=== PATIENT | female | born 1930 | race Caucasian/White ===

== ENCOUNTER 2016-05-26 16:07 | Inpatient (IN) | payer MEDICARE, MEDICAID ==
[2016-05-26] MEDS ORDERED: NS 1,000 ML IV ONE (16:29)
[2016-05-26 16:39] LABS: AUTOMATED BASOPHIL 0.5 % (0-2); AUTOMATED EOSINOPHIL 2.2 % (0-5); AUTOMATED LYMPH 38.9 % (17-44); AUTOMATED MONOCYTE 8.2 % (3-10); AUTOMATED NEUTROPHIL 50.2 % (45-76); MPV 7.4 fL (7.4-10.4)
--- NOTE | 2016-05-26 16:41 | EDPRACDOC ---
- General Information Chief Complaint: Abdominal Pain Stated Complaint: LT SIDED ABD PAIN Time Seen by Provider: 05/26/16 16:28 Information Source: Patient Mode Of Arrival: Car Home Medications: Home Medications Amlodipine Bes/Olmesartan Med [Azeb Tablet (5mg/40 mg)] 0.5 tab PO QAM 07/22/13 Aspirin (Enteric Coated) [Halfprin] 81 mg PO DAILY 07/22/13 Atorvastatin [Lipitor 20 mg Tablet] 20 mg PO HS 07/22/13 Minocycline HCl [Dynacin] 100 mg PO DAILY 05/26/16 Allergies/Adverse Reactions: Allergies Allergy/AdvReac Type Severity Reaction Status Date / Time No Known Allergies Allergy Verified 05/26/16 16:18 - History of Present Illness Onset: 4 DAYS HPI: PATIENT PRESENTS WITH RLQ ABDOMINAL PAIN FOR 1 WEEK. TAKING CEFTIN AND FLAGYL FOR 5 DAYS WITHOUT RELIEF. NO FEVER. NAUSEA. DECREASED EATING Pain Location: Reports: LLQ Pain Context: Reports: Spontaneous Pain Severity: Moderate Pain Quality: Reports: Aching Pain Radiation: Reports: No Radiation Modifying Factors: improves with: Nothing Female Associated Signs & Symptoms: Reports: Nausea Oral Intake: Normal Urinary Output: Normal ED Past Medical History - History Reviewed Yes Nurses notes reviewed and agree except as marked - Patient Medical History Neurological History: Reports: Cerebrovascular Accident ([id number]) Cardiac History: Reports: Hypertension, Hypercholesterolemia Psychological History: Denies: Depression Systemic History: Reports: Cancer (skin) - Family Medical History Reports: Cardiac Disorders - Social Medical History Smoking Status: Never smoker ETOH: None Substance Abuse: None Lives With: Family Lives In: Home EDM Review of Systems - Review of Systems ROS Negative Except as Marked: Yes All systems reviewed and were negative except as marked Constitutional: No Symptoms Reported. negative: Fever, Chills, Weakness, Fatigue, Loss of Appetite Eyes: No Symptoms Reported. negative: Redness, Blurred Vision, Double Vision, Discharge, Pain, Light Sensitive, Photophobia Ears: No Symptoms Reported. negative: Pain, Hearing Loss, Drainage, Ear Pulling Throat: No Symptoms Reported. negative: Pain, Swelling Nose: No Symptoms Reported. negative: Congestion, Bleeding, Discharge, Injection, Swelling, Deformity, Ecchymosis, Tender, Abrasion, Laceration Mouth: No Symptoms Reported. negative: Pain, Drooling Respiratory: No Symptoms Reported. negative: Cough, Brassy Cough, Barky Cough, Shortness of Breath, Wheezing, Hemoptysis Cardiovascular: No Symptoms Reported. negative: Chest Pain, Palpitations, Syncope, Edema, Orthopnea, PND, Skin Mottling, Cyanosis Gastrointestinal: Nausea, Pain (LLQ). negative: Constipation, Diarrhea, Formula Intolerance, Melena, Vomiting Genitourinary: No Symptoms Reported. negative: Dysuria, Hematuria, Frequency, Discharge, Bleeding, Testicular Pain, Neurological: No Symptoms Reported. negative: Headache, Dizziness, Seizure, Numbness, Weakness, Speech Difficulty, Gait Difficulty Musculoskeletal: No Symptoms Reported. negative: Neck, Chestwall, Ribs, Back, Shoulder, Arm, Elbow, Forearm, Wrist, Hand, Pelvis, Hip, Femur, Knee, Leg, Ankle , Foot Integumentary: No Symptoms Reported. negative: Itching, Rash, Bruising, Wound Allergic/Immunologic: No Symptoms Reported. negative: Hives, Itching Hematologic: No Symptoms Reported. negative: Lymphadenopathy, Easy Bruising, Easy Bleeding Endocrine: No Symptoms Reported. negative: Weight Gain, Weight Loss Psychiatric: No Symptoms Reported. negative: Anxiety, Depression, Hallucinations, Insomnia, Suicidal - Physical Exam Constitutional: Alert (Awake) Oriented to: Time, Person, Place Last recorded Vital Signs: Last Vital Signs Temp 97.6 F 05/26/16 16:14 Pulse 80 05/26/16 17:33 Resp 18 05/26/16 17:33 BP 148/67 05/26/16 17:33 Pulse Ox 99 05/26/16 17:33 Oxygen Pulse Oxygen Saturation 99 O2 Device Room Air Oxygen Flow Rate Fraction of Inspired Oxygen ( FIO2) - HEENT Head: Normal ( normocephalic) Eye Exam: Normal (PERRL, EOMI, Sclera white) Oropharynx: Normal (Pharynx:Moist without exudate,Gums-no swelling) Tympanic Membrane: Normal ENT EAC: Normal TMJ: Normal Nose: No Symptoms Reported (septum midline) Neck: Normal (FROM, trachea at midline) - Respiratory/Cardiovascular Respiratory: Normal - CTA (BBS clear to auscultation without adventitious sounds ) Cardiovascular: Normal (RRR without murmur, gallop or rub) - GI Auscultation: Normal (NABS) Palpation: Normal (Soft,No rebound or guarding, non distended) Tenderness: Moderate, LLQ Verduzco's Sign: Negative - Musculoskeletal Back: Normal (Non-Tender) Extremities: Normal (Normal tone, Pulses 2+ No cyanosis or edema, FROM) - Integumentary Skin: Normal, Warm, Dry Lymphatics: Normal (no adenopathy) - Neurologic Memory Impaired: Normal Motor Function: Normal (Normal tone, Pulses 2+ No cyanosis or edema, FROM) Cranial Nerve: Normal (CN II-X11 intact sensation, strength 5/5) Cerebellar: Normal Mood Description: Normal Perception: Normal - Results 05/26/16 16:30 05/26/16 16:30 WBC 7.1 xk/uL (3.8-10.8) 05/26/16 16:30 RBC 4.21 xM/uL (4.20-5.40) 05/26/16 16:30 Hgb 12.2 g/dL (12.0-16.0) 05/26/16 16:30 Hct 36.8 % (36-47) 05/26/16 16:30 MCV 87 fL (81-99) 05/26/16 16:30 MCH 29.0 pg (27-32) 05/26/16 16:30 MCHC 33.2 g/dl (33-36) 05/26/16 16:30 RDW 14.6 % (11.5-14.5) H 05/26/16 16:30 Plt Count 206 xk/uL (130-400) 05/26/16 16:30 MPV 7.4 fL (7.4-10.4) 05/26/16 16:30 Neut % (Auto) 50.2 % (45-76) 05/26/16 16:30 Lymph % (Auto) 38.9 % (17-44) 05/26/16 16:30 [place] % (Auto) 8.2 % (3-10) 05/26/16 16:30 Eos % (Auto) 2.2 % (0-5) 05/26/16 16:30 Baso % (Auto) 0.5 % (0-2) 05/26/16 16:30 Absolute Neuts (auto) 3.55 xk/uL (1.7-8.2) 05/26/16 16:30 Absolute Lymphs (auto) 2.70 xk/uL (0.65-4.75) 05/26/16 16:30 Sodium 139 mEq/L (137-146) 05/26/16 16:30 Potassium 3.9 mEq/L (3.5-5.1) 05/26/16 16:30 Chloride 101 mEq/L (98-107) 05/26/16 16:30 Carbon Dioxide 28 mMOL/L (22-33) 05/26/16 16:30 Anion Gap 14 mEq/L (8-16) 05/26/16 16:30 BUN 23 MG/DL (7-17) H 05/26/16 16:30 Creatinine 1.10 MG/DL (0.52-1.04) H 05/26/16 16:30 Estimated GFR (MDRD) 47 mL/min (>=60) L 05/26/16 16:30 Glucose 110 MG/DL (70-99) H 05/26/16 16:30 Calculated Osmolality 273 MOs/Kg (270-290) 05/26/16 16:30 Calcium 9.6 MG/DL (8.4-10.2) 05/26/16 16:30 Total Bilirubin 0.5 MG/DL (0.2-1.3) 05/26/16 16:30 AST 25 IU/L (14-36) 05/26/16 16:30 ALT 26 IU/L (9-52) 05/26/16 16:30 Alkaline Phosphatase 81 IU/L (55-165) 05/26/16 16:30 Total Protein 8.0 G/DL (6.3-8.2) 05/26/16 16:30 Albumin 4.1 G/DL (3.5-5.0) 05/26/16 16:30 Lipase 52 U/L (23-300) 05/26/16 16:30 Urine Color Yellow 05/26/16 16:23 Urine Clarity Clear 05/26/16 16:23 Urine pH 5.0 (5.0-8.0) 05/26/16 16:23 Ur Specific [place] 1.005 (1.003-1.035) 05/26/16 16:23 Urine Protein Neg (NEG/TRACE) 05/26/16 16:23 Urine Glucose (UA) Neg (NEGATIVE) 05/26/16 16:23 Urine Ketones Neg (NEGATIVE) 05/26/16 16:23 Urine Occult Blood Neg (NEG/TRACE) 05/26/16 16:23 Urine Nitrite Neg (NEGATIVE) 05/26/16 16:23 Urine Bilirubin Neg (NEGATIVE) 05/26/16 16:23 Urine Urobilinogen <2.0 MG/DL (0-1) 05/26/16 16:23 Ur Leukocyte Esterase Neg (NEGATIVE) 05/26/16 16:23 Urine RBC 0-2 (0-5) 05/26/16 16:23 Urine WBC 0-2 (0-5) 05/26/16 16:23 Ur Epithelial Cells 1+ 05/26/16 16:23 Urine Bacteria Few (NEG/FEW) 05/26/16 16:23 Urine Mucus Occ (NEG/OCC) 05/26/16 16:23 Lab Results 05/26/16 05/26/16 05/26/16 16:30 16:30 16:23 WBC 7.1 RBC 4.21 Hgb 12.2 Hct 36.8 MCV 87 MCH 29.0 MCHC 33.2 RDW 14.6 H Plt Count 206 MPV 7.4 Neut % (Auto) 50.2 Lymph % (Auto) 38.9 [place] % (Auto) 8.2 Eos % (Auto) 2.2 Baso % (Auto) 0.5 Absolute Neuts (auto) 3.55 Absolute Lymphs (auto) 2.70 Sodium 139 Potassium 3.9 Chloride 101 Carbon Dioxide 28 Anion Gap 14 BUN 23 H Creatinine 1.10 H Estimated GFR (MDRD) 47 L Glucose 110 H Calculated Osmolality 273 Calcium 9.6 Total Bilirubin 0.5 AST 25 ALT 26 Alkaline Phosphatase 81 Total Protein 8.0 Albumin 4.1 Lipase 52 Urine Color Yellow Urine Clarity Clear Urine pH 5.0 Ur Specific [place] 1.005 Urine Protein Neg Urine Glucose (UA) Neg Urine Ketones Neg Urine Occult Blood Neg Urine Nitrite Neg Urine Bilirubin Neg Urine Urobilinogen <2.0 Ur Leukocyte Esterase Neg Urine RBC 0-2 Urine WBC 0-2 Ur Epithelial Cells 1+ Urine Bacteria Few Urine Mucus Occ - Departure Disposition: Admit IP To This Hospital Condition: Fair Final Diagnosis: Failure of outpatient treatment Diverticulitis Qualifiers: Diverticulitis site: large intestine Diverticulitis bleeding: without bleeding Diverticulitis complication: without perforation or abscess Qualified Code(s): K57.32 - Diverticulitis of large intestine without perforation or abscess without bleeding Instructions: Acute Abdominal Pain (ED) Education/Counseling Given To: Patient Education/Counseling Given Regarding: Diagnosis, Treatment, Prognosis Referrals: Ricardo Wooten MD [Primary Care Provider] - One Week Prescriptions: No Action Aspirin (Enteric Coated) [Halfprin] 81 mg PO DAILY Atorvastatin [Lipitor 20 mg Tablet] 20 mg PO HS Amlodipine Bes/Olmesartan Med [Azeb Tablet (5mg/40 mg)] 0.5 tab PO QAM Minocycline HCl [Dynacin] 100 mg PO DAILY Decision to Admit Time: 18:22 Decision to admit date: 05/26/16 Decision to admit: from ED - Physician Consulted Hospitalist Time Called: 18:22 Provider Called: Daniele Covington Time Executive [employer] Returned Call: 18:22
[2016-05-26 16:48] LABS: BLOOD UREA NITROGEN 23 MG/DL (7-17); CALCIUM 9.6 MG/DL (8.4-10.2); CALCULATED OSMOLALITY 273 MOs/Kg (270-290); CHLORIDE 101 mEq/L (98-107); GLUCOSE 110 MG/DL (70-99); SODIUM LEVEL 139 mEq/L (137-146)
[2016-05-26 16:57] LABS: LEUKOCYTES/URINE NEG (NEGATIVE); NITRITE/URINE NEG (NEGATIVE); RBC/URINE 0-2 (0-5); URINE OCCULT BLOOD NEG (NEG/TRACE); WBC/URINE 0-2 (0-5)
[2016-05-26] MEDS ORDERED: Pharmacy Review for Metformin - IV Contrast Given SCH (17:00)
--- NOTE | 2016-05-26 18:17 | DIRPT ---
CLINICAL DATA: 86-year-old presenting with 4 day history of left upper and lower quadrant abdominal pain. Patient is currently undergoing antibiotic therapy without improvement. Surgical history includes cholecystectomy and right colon resection. Personal history of melanoma. EXAM: CT ABDOMEN AND PELVIS WITH CONTRAST TECHNIQUE: Multidetector CT imaging of the abdomen and pelvis was performed using the standard protocol following bolus administration of intravenous contrast. CONTRAST: 80 ml Isovue 370 IV. Oral contrast was not administered at the request of the ordering physician. COMPARISON: None. FINDINGS: Lower chest: Heart mildly enlarged. Scarring and mild bronchiectasis involving the visualized lower lobes. Hepatobiliary: Mild diffuse hepatic steatosis without focal hepatic parenchymal abnormality. Surgically absent gallbladder. No unexpected biliary ductal dilation. Pancreas: Normal in appearance without evidence of mass, ductal dilation, or inflammation. Spleen: Normal in size and appearance. Adrenals/Urinary Tract: Normal appearing adrenal glands. Approximate 1.9 x 1.5 x 1.8 cm mass arising from the upper pole of the right kidney with Hounsfield measurement in the 60s. Numerous cortical cysts elsewhere in both kidneys. No urinary tract calculi on either side. No hydronephrosis. Normal-appearing urinary bladder. Stomach/Bowel: Small hiatal hernia. Stomach otherwise normal in appearance. Normal-appearing small bowel. Ileocolic anastomosis involving the mid to distal ascending colon, widely patent. Extensive diffuse colonic diverticulosis. Edema/inflammation in the fat surrounding the proximal sigmoid colon associated with focal wall thickening. No extraluminal gas. No abnormal fluid collection. Appendix surgically absent. 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 Visceral arteries patent though atherosclerotic. No pathologic lymphadenopathy. Reproductive: Atrophic uterus consistent with age, retroverted. Normal appearing ovaries for age. Left ovarian varicocele. No adnexal masses. Other: None. Musculoskeletal: Osseous demineralization. Degenerative disc disease and spondylosis involving the lower thoracic spine, L1-2, L4-5 and L5-S1. Facet degenerative changes diffusely throughout the lumbar spine. Moderate to severe multifactorial spinal stenosis at L4-5. IMPRESSION: 1. Approximate 2 cm mass arising from the upper pole of the right kidney, possibly a solid mass (versus hemorrhagic cyst, as there are cortical cysts elsewhere in both kidneys). Non-emergent urinary tract ultrasound may be confirmatory. 2. Acute diverticulitis involving the proximal sigmoid colon. No evidence of perforation or abscess. 3. Extensive diffuse colonic diverticulosis. 4. Small hiatal hernia. 5. Diffuse hepatic steatosis without focal hepatic parenchymal abnormality. Electronically Signed By: Kirill Ramirez M.D. On: 05/26/2016 18:14
[2016-05-26] MEDS ORDERED: Levofloxacin 750 mg/150 ml D5W 750 MG/150 ML RTU IV ONE (18:21)
--- NOTE | 2016-05-26 18:51 | HISTPHYS ---
- Chief Complaint abdominal pain, diverticulitis - History of Present Illness PRIMARY CARE PROVIDER: Dr. Wooten HPI: The patient is an 86-year-old woman with history of diverticulitis in the past, who was recently diagnosed with acute diverticulitis, and presents to the emergency department because it is worsening despite treatment. The patient has been on Ceftin and Flagyl for her diverticulitis for about 5 days. She went to the urgent care today because it was worsening. The urgent care provider was concerned and found guarding on exam and sent the patient to the emergency department. Regarding abdominal pain: Onset: about a week ago. Duration: intermittent but progressively worsening. Location: left lower quadrant. Radiation: none. Character: severe at times, to 8 /10. Cramping and dull. Alleviated by: Nothing. Exacerbated by: Nothing. Associated Symptoms: Nausea. No diarrhea. No constipation or bloody stool. Treatments: Antibiotics: Ceftin and Flagyl. - Medical History Cardiac History: Reports: Hypertension, Hypercholesterolemia GI/ History: Reports: Diverticulosis (Hx high grade glandular dysplasia colonoscopy 1999 Dr. Cochran.) Systemic History: Reports: Cancer (Melanoma) Neurological History: Reports: Cerebrovascular Accident (TIA 2013) Psychological History: Denies: Depression OTHER HISTORY: ECHOCARDIOGRAM 08/10/2013: EF 60-65%. Left ventricular systolic function is normal. Diastolic filling pattern indicates impaired relaxation. [id number] aortic regurgitation. The aortic pressure half time by Doppler is 494ms. Mild mitral regurgitation. Mild tricuspid regurgitation. Right ventricular systolic pressure as measured by Doppler is 32mmHg. - Surgical History Reports: Appendectomy (removed 2008 during colon resection), Cholecystectomy, Other (R colon resection for dysplasia (tub adenoma) 09/2008 Dr. Post.) - Medictions/Allergies Allergies No Known Allergies Allergy (Verified 05/26/16 16:18) Current Medication List: Reviewed Home Medications Amlodipine Bes/Olmesartan Med [Azeb Tablet (5mg/40 mg)] 0.5 tab PO QAM 07/22/13 Aspirin (Enteric Coated) [Halfprin] 81 mg PO DAILY 07/22/13 Atorvastatin [Lipitor 20 mg Tablet] 20 mg PO HS 07/22/13 Minocycline HCl [Dynacin] 100 mg PO DAILY 05/26/16 - Family History Reports: Hypertension (Aunt), Cancer (Mother: colon cancer), Cardiac Disorders ( Mother and Father: [place]) - Social History Smoking Status: Never smoker Social History: Denies: Alcohol Use, Substance Use Disorder - Review of Systems GENERAL: No Fever, chills, or diaphoresis. Positive for fatigue/malaise. HEENT: No nasal discharge or bleeding. No throat pain or swelling. RESPIRATORY: No cough, wheezing, or shortness of breath. CARDIOVASCULAR: No chest pain or palpitations. GI: Abdominal pain. No constipation or bloody stool. NEUROLOGICAL: No headache or focal weakness. INTEGUMENT: no rashes, itching, or lesions. LYMPHATIC SYSTEM: no lymph node swelling or pain. MUSCULOSKELETAL: no new pain or joint swelling. GENITOURINARY: No dysuria or hematuria. ENDOCRINE: No polyuria or polydipsia. HEME: No chronic anemia, bleeding, or easy bruising. - Physical Exam Vital Signs: Initial Vitals Temperature 97.6 F 05/26/16 16:14 Pulse Rate 65 05/26/16 16:14 Respiratory Rate 20 05/26/16 16:14 Blood Pressure 164/7 L 05/26/16 16:14 Pulse Oxygen Saturation 100 05/26/16 16:14 Vital Signs - 24 hr 05/26/16 05/26/16 05/26/16 16:14 16:31 17:03 Temperature 97.6 F Pulse Rate 65 66 68 Respiratory 20 18 18 Rate Blood Pressure 164/7 L 163/74 180/80 H Pulse Oxygen 100 99 Saturation 05/26/16 17:33 Temperature Pulse Rate 80 Respiratory 18 Rate Blood Pressure 148/67 Pulse Oxygen 99 Saturation Weight: 69.2 kg Height: 5 feet 4 inches BMI: 26.2 - Other Exam Other Exam Findings: GENERAL: Ill-appearing, well nourished, in acute distress. HEENT: Normocephalic, atraumatic; pupils equal and round. Nares patent, without discharge or bleeding. No oropharyngeal lesions or erythema. Mucous membranes are dry. NECK: is supple, no masses, trachea midline. RESPIRATORY: Clear to auscultation bilaterally. Chest wall movements are symmetric. No use of accessory muscles to breathe. No wheezing, rales, rhonchi. CARDIOVASCULAR: Normal S1, S2. Murmur 2/6 systolic. No rubs, or gallops. PMI non -displaced. Carotids: no carotid bruits. No bradycardia or tachycardia. DP pulses 1-2+ bilaterally. GI: soft, non-distended, normal active bowel sounds. No hepatosplenomegaly. Tenderness in periumbilical and left lower quadrant areas. INTEGUMENT: Clean, dry, and intact. No rashes. No lesions. MUSCULOSKELETAL: No cyanosis. No clubbing. Edema: none bilaterally. NEUROLOGICAL: Cranial nerves 2-12 grossly intact. Motor 4/5 throughout. Reflexes : 2+ bilaterally. Babinski: toes downgoing bilaterally. Intact Finger to nose. Sensory grossly intact to light touch. Intact rapid alternating movements bilaterally. No pronator drift. PSYCHIATRIC: Fully oriented. Normal and appropriate affect. LYMPHATIC: No cervical lymphadenopathy. No supraclavicular lymphadenopathy. - Lab Results Laboratory Results - last 24 hr 05/26/16 05/26/16 05/26/16 16:23 16:30 16:30 WBC 7.1 RBC 4.21 Hgb 12.2 Hct 36.8 MCV 87 MCH 29.0 MCHC 33.2 RDW 14.6 H Plt Count 206 MPV 7.4 Neut % (Auto) 50.2 Lymph % (Auto) 38.9 [place] % (Auto) 8.2 Eos % (Auto) 2.2 Baso % (Auto) 0.5 Absolute Neuts (auto) 3.55 Absolute Lymphs (auto) 2.70 Sodium 139 Potassium 3.9 Chloride 101 Carbon Dioxide 28 Anion Gap 14 BUN 23 H Creatinine 1.10 H Estimated GFR (MDRD) 47 L Glucose 110 H Calculated Osmolality 273 Calcium 9.6 Total Bilirubin 0.5 AST 25 ALT 26 Alkaline Phosphatase 81 Total Protein 8.0 Albumin 4.1 Lipase 52 Urine Color Yellow Urine Clarity Clear Urine pH 5.0 Ur Specific [place] 1.005 Urine Protein Neg Urine Glucose (UA) Neg Urine Ketones Neg Urine Occult Blood Neg Urine Nitrite Neg Urine Bilirubin Neg Urine Urobilinogen <2.0 Ur Leukocyte Esterase Neg Urine RBC 0-2 Urine WBC 0-2 Ur Epithelial Cells 1+ Urine Bacteria Few Urine Mucus Occ - Diagnostic Findings CT abdomen and pelvis, viewed personally: EXAM: CT ABDOMEN AND PELVIS WITH CONTRAST TECHNIQUE: Multidetector CT imaging of the abdomen and pelvis was performed using the standard protocol following bolus administration of intravenous contrast. CONTRAST: 80 ml Isovue 370 IV. Oral contrast was not administered at the request of the ordering physician. COMPARISON: None. FINDINGS: Lower chest: Heart mildly enlarged. Scarring and mild bronchiectasis involving the visualized lower lobes. Hepatobiliary: Mild diffuse hepatic steatosis without focal hepatic parenchymal abnormality. Surgically absent gallbladder. No unexpected biliary ductal dilation. Pancreas: Normal in appearance without evidence of mass, ductal dilation, or inflammation. Spleen: Normal in size and appearance. Adrenals/Urinary Tract: Normal appearing adrenal glands. Approximate 1.9 x 1.5 x 1.8 cm mass arising from the upper pole of the right kidney with Hounsfield measurement in the 60s. Numerous cortical cysts elsewhere in both kidneys. No urinary tract calculi on either side. No hydronephrosis. Normal-appearing urinary bladder. Stomach/Bowel: Small hiatal hernia. Stomach otherwise normal in appearance. Normal-appearing small bowel. Ileocolic anastomosis involving the mid to distal ascending colon, widely patent. Extensive diffuse colonic diverticulosis. Edema/inflammation in the fat surrounding the proximal sigmoid colon associated with focal wall thickening. No extraluminal gas. No abnormal fluid collection. Appendix surgically absent. 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 Visceral arteries patent though atherosclerotic. No pathologic lymphadenopathy. Reproductive: Atrophic uterus consistent with age, retroverted. Normal appearing ovaries for age. Left ovarian varicocele. No adnexal masses. Other: None. Musculoskeletal: Osseous demineralization. Degenerative disc disease and spondylosis involving the lower thoracic spine, L1-2, L4-5 and L5-S1. Facet degenerative changes diffusely throughout the lumbar spine. Moderate to severe multifactorial spinal stenosis at L4-5. IMPRESSION: 1. Approximate 2 cm mass arising from the upper pole of the right kidney, possibly a solid mass (versus hemorrhagic cyst, as there are cortical cysts elsewhere in both kidneys). Non-emergent urinary tract ultrasound may be confirmatory. 2. Acute diverticulitis involving the proximal sigmoid colon. No evidence of perforation or abscess. 3. Extensive diffuse colonic diverticulosis. 4. Small hiatal hernia. 5. Diffuse hepatic steatosis without focal hepatic parenchymal abnormality. 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 (6) Spinal stenosis, lumbar M48.06 - SPINAL STENOSIS, LUMBAR REGION Chronic Present on Admission: Yes CT abdomen and pelvis also revealed: Musculoskeletal: Osseous demineralization. Degenerative disc disease and spondylosis involving the lower thoracic spine, L1-2, L4-5 and L5-S1. Facet degenerative changes diffusely throughout the lumbar spine. Moderate to severe multifactorial spinal stenosis at L4-5. Plan: Follow up with primary care for further evaluation and treatment. 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 Visceral arteries patent though atherosclerotic. No pathologic lymphadenopathy. Plan: Follow up with primary care for further evaluation. - Plan (1) Acute diverticulitis K57.92 - DVTRCLI OF INTEST, PART UNSP, W/O PERF OR ABSCESS W/O BLEED Acute Present on Admission: Yes Failed outpatient management with ceftin and flagyl. Now worsening. Plan: Admit. IV morphine for pain control. Change antibiotics. IVFs. (2) Left lower quadrant pain R10.32 - LEFT LOWER QUADRANT PAIN Acute Plan: IV morphine prn. 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 Plan: Will need to discuss result, implications with patient and her family in the morning. Will need further evaluation. (4) Dehydration E86.0 - DEHYDRATION Acute Plan: IV fluids. (5) Hepatic steatosis K76.0 - FATTY (CHANGE OF) LIVER, NOT ELSEWHERE CLASSIFIED Chronic This was found on the CT scan. Plan: Discussed with patient. Follow up with primary care and GI. (6) Spinal stenosis, lumbar M48.06 - SPINAL STENOSIS, LUMBAR REGION Chronic CT abdomen and pelvis also revealed: Musculoskeletal: Osseous demineralization. Degenerative disc disease and spondylosis involving the lower thoracic spine, L1-2, L4-5 and L5-S1. Facet degenerative changes diffusely throughout the lumbar spine. Moderate to severe multifactorial spinal stenosis at L4-5. Plan: Follow up with primary care for further evaluation and treatment. 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 Visceral arteries patent though atherosclerotic. No pathologic lymphadenopathy. Plan: Follow up with primary care for further evaluation. Case Care Discussed with: Patient, Nursing Staff
[2016-05-26] MEDS: MORPHINE 2 MG/ML INJECTION IV PRN ×2 (19:36→23:56)
[2016-05-26] MEDS: NS 1,000 ML IV SCH (19:36)
[2016-05-26] MEDS ORDERED: Vaccine Screening Complete SCH (21:00)
[2016-05-26] MEDS ORDERED: BENZONATATE 100 MG PERLES PO PRN (22:55)
[2016-05-26] MEDS ORDERED: SENNA CONCENTRATE TAB PO PRN (22:55)
[2016-05-26] MEDS ORDERED: ACETAMINOPHEN 325 MG SUPP PR PRN (22:55)
[2016-05-26] MEDS ORDERED: Aluminum;Magnesium;Simethicone 30 ML UDC PO PRN (22:55)
[2016-05-26] MEDS ORDERED: GUAIFEN 100 MG-DEXTROMETH 10 MG PER 5 ML PO PRN (22:55)
[2016-05-26] MEDS ORDERED: TEMAZEPAM 15 MG CAP PO PRN (22:55)
[2016-05-26] MEDS ORDERED: ACETAMINOPHEN 325 MG/TAB TABLET PO PRN (22:55)
[2016-05-26] MEDS ORDERED: ONDANSETRON HCL 4 MG/2 ML VIAL IV PRN (22:55)
[2016-05-26] MEDS ORDERED: PROMETHAZINE 25 MG/ML VIAL IV PRN (22:55)
[2016-05-26] MEDS ORDERED: BISACODYL 5 MG TAB PO PRN (22:55)
[2016-05-26] MEDS: ATORVASTATIN 20 MG TAB PO SCH (23:52)
[2016-05-26] MEDS: Metronidazole 500 mg/100 ml 500 MG/100 ML RTU IV SCH (23:52)
[2016-05-26] MEDS: ENOXAPARIN 40 MG/0.4 ML PFS SQ SCH (23:52)
[2016-05-27] MEDS: NS 1,000 ML IV SCH ×3 (05:26→20:14)
[2016-05-27 05:43] VITALS: BMI 26.1
[2016-05-27 07:09] LABS: MPV 7.4 fL (7.4-10.4)
[2016-05-27 07:30] LABS: BLOOD UREA NITROGEN 15 MG/DL (7-17); CALC CORRECTED 9.4 MG/DL (8.4-10.2); CALCIUM 8.6 MG/DL (8.4-10.2); CALCULATED OSMOLALITY 269 MOs/Kg (270-290); CHLORIDE 105 mEq/L (98-107); GLUCOSE 91 MG/DL (70-99); SODIUM LEVEL 139 mEq/L (137-146); TOTAL PROTEIN 6.3 G/DL (6.3-8.2)
[2016-05-27] MEDS: Metronidazole 500 mg/100 ml 500 MG/100 ML RTU IV SCH ×3 (08:10→23:07)
[2016-05-27] MEDS: OLMESARTAN 20 MG TAB PO SCH (08:11)
[2016-05-27] MEDS: AMLODIPINE 2.5 MG TAB PO SCH (08:11)
[2016-05-27] MEDS: MORPHINE 2 MG/ML INJECTION IV PRN ×2 (08:15→15:25)
[2016-05-27] MEDS ORDERED: OLMESARTAN PO SCH (09:00)
[2016-05-27] MEDS ORDERED: AMLODIPINE PO SCH (09:00)
[2016-05-27] MEDS ORDERED: [UNRECOGNIZED DRUG - OTHER] PO SCH (09:00)
--- NOTE | 2016-05-27 17:15 | GENMEDPROG ---
Chief Complaint: Appears well. Still with moderate abdominal pain. No chest pain or shortness of breath Notes Reviewed: Yes Events from last night noted and discussed with Clinical Staff Current Medication List: Reviewed Currently: Reports: Nausea and Vomiting, Abdominal Pain. Denies: Cough, Wheezing, CHENG, SOB, Chest Pain DVT Prophylaxis: Yes - Physical Examination Vital Signs and I&O: Last Vital Signs Temp 98.0 F 05/27/16 14:00 Pulse 70 05/27/16 14:00 Resp 18 05/27/16 14:00 BP 148/67 05/27/16 14:00 Pulse Ox 97 05/27/16 14:00 Oxygen Pulse Oxygen Saturation 97 O2 Device Room Air Oxygen Flow Rate Fraction of Inspired Oxygen ( FIO2) Intake & Output 05/24/16 05/25/16 05/26/16 05/27/16 23:59 23:59 23:59 23:59 Intake Total 1030 1871 Output Total 400 2150 Balance 630 -279 Patient's weight 68.577 kg 69.059 kg General: Alert, Oriented x3, Cooperative HEENT: Normal, PERRLA, EOMI, Anicteric Sclera Neck: Non-tender, Full range of motion, Normal Trachea alignment, Normal inspection. negative: JVD Lymphatics: Normal (no adenopathy) Respiratory: Normal - CTA (BBS clear to auscultation without adventitious sounds ) Cardiovascular: Regular rate and rhythm, No Gallops,Rubs/Murmurs GI: Normal bowel sounds, Soft, Tenderness. negative: Obese, Hepatosplenomegaly Extremities/Musculoskeletal: Normal pulses. negative: Tenderness, Swelling, Edema Skin: Warm,Dry and Intact. negative: No rashes, No breakdown Neurological: Normal speech, Strength at 5/5 X4 ext, Normal tone, Cranial nerves 3-12 NL Psych/Mental Status: Appropriate, Normal Affect, Cooperative Lab/DI/Studies Reviewed: Laboratory Results - last 24 hr 05/26/16 05/27/16 05/27/16 23:25 06:44 06:44 WBC 5.2 RBC 3.95 L Hgb 11.5 L Hct 34.5 L MCV 87 MCH 29.0 MCHC 33.2 RDW 14.3 Plt Count 172 MPV 7.4 Sodium 139 Potassium 4.2 Chloride 105 Carbon Dioxide 27 Anion Gap 11 BUN 15 Creatinine 0.80 Estimated GFR (MDRD) > 60 Glucose 91 Calculated Osmolality 269 L Lactic Acid 0.8 Calcium 8.6 Corrected Calcium 9.4 Total Bilirubin 0.4 AST 19 ALT 31 Alkaline Phosphatase 66 Total Protein 6.3 Albumin 3.2 L - Assessment (1) Acute diverticulitis Acute K57.92 - DVTRCLI OF INTEST, PART UNSP, W/O PERF OR ABSCESS W/O BLEED Comment/Plan: Slightly better today. Failed appropriate outpatient management. She says this is the 2nd episode since January. Continue IV antibiotics, IV fluids and IV analgesics. Likely needs outpatient referral to GI for possible colonoscopy. If recurs again may need surgery (2) Left lower quadrant pain Acute R10.32 - LEFT LOWER QUADRANT PAIN Comment/Plan: Due to diverticulitis. 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 (4) Hepatic steatosis Chronic K76.0 - FATTY (CHANGE OF) LIVER, NOT ELSEWHERE CLASSIFIED Comment/ Plan: Chronic. 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 Visceral arteries patent though atherosclerotic. No pathologic lymphadenopathy. Plan: Follow up with primary care for further evaluation. Case Care Discussed with: Patient, Family, Nursing Staff, Resource Management
[2016-05-27] MEDS: ATORVASTATIN 20 MG TAB PO SCH (20:12)
[2016-05-27] MEDS: ENOXAPARIN 40 MG/0.4 ML PFS SQ SCH (20:13)
--- NOTE | 2016-05-27 22:07 | DIRPT ---
CLINICAL DATA: Mass versus cyst in the upper right kidney on CT. EXAM: RENAL / URINARY TRACT ULTRASOUND COMPLETE COMPARISON: CT abdomen/pelvis performed yesterday FINDINGS: Right Kidney: Length: 10.4 cm. Avascular anechoic cyst in the upper kidney measures 1.6 x 1.0 x 1.7 cm, corresponding to questioned mass on CT. Additional simple cyst in the interpolar kidney measures 1.4 cm. Echogenicity is otherwise within normal limits. No mass or hydronephrosis visualized. Left Kidney: Length: 10.4 cm. Echogenicity within normal limits. No mass or hydronephrosis visualized. Bladder: Appears normal for degree of bladder distention. IMPRESSION: The right upper pole renal lesion on CT corresponds to a cyst. No solid mass is seen. Additional simple cyst in the interpolar right kidney. Electronically Signed By: Bessy Hartley M.D. On: 05/27/2016 22:04
[2016-05-28 06:07] VITALS: TEMP 98.2
[2016-05-28 06:42] LABS: AUTOMATED BASOPHIL 0.9 % (0-2); AUTOMATED EOSINOPHIL 3.1 % (0-5); AUTOMATED LYMPH 36.9 % (17-44); AUTOMATED MONOCYTE 10.3 % (3-10); AUTOMATED NEUTROPHIL 48.8 % (45-76); MPV 7.7 fL (7.4-10.4)
[2016-05-28 07:11] LABS: BLOOD UREA NITROGEN 10 MG/DL (7-17); CALC CORRECTED 9.3 MG/DL (8.4-10.2); CALCIUM 8.2 MG/DL (8.4-10.2); CALCULATED OSMOLALITY 270 MOs/Kg (270-290); CHLORIDE 105 mEq/L (98-107); GLUCOSE 97 MG/DL (70-99); SODIUM LEVEL 141 mEq/L (137-146); TOTAL PROTEIN 6.1 G/DL (6.3-8.2)
[2016-05-28] MEDS: Metronidazole 500 mg/100 ml 500 MG/100 ML RTU IV SCH (07:40)
[2016-05-28] MEDS: NS 1,000 ML IV SCH (07:41)
[2016-05-28] MEDS: OLMESARTAN 20 MG TAB PO SCH (07:50)
--- NOTE | 2016-05-28 09:30 | PCM.DCS92 ---
- Final/Secondary Discharge Diagnosis (1) Acute diverticulitis Acute K57.92 - DVTRCLI OF INTEST, PART UNSP, W/O PERF OR ABSCESS W/O BLEED Present on Admission: Yes Comment: Slightly better today. Failed appropriate outpatient management. She says this is the 2nd episode since January. Continue IV antibiotics, IV fluids and IV analgesics. Likely needs outpatient referral to GI for possible colonoscopy. If recurs again may need surgery (2) Left lower quadrant pain Acute R10.32 - LEFT LOWER QUADRANT PAIN Present on Admission: Yes Comment: Due to diverticulitis. 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 (4) Hepatic steatosis Chronic K76.0 - FATTY (CHANGE OF) LIVER, NOT ELSEWHERE CLASSIFIED Present on Admission: Yes Comment: Chronic. 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 Visceral arteries patent though atherosclerotic. No pathologic lymphadenopathy. Plan: Follow up with primary care for further evaluation. Discharge Disposition: Home Discharge Condition: Improved Fuctional Discharge Status: Independent Physician Follow up/Referrals: Ricardo Wooten MD [Primary Care Provider] - One Week Home Medications / New Prescriptions: New Levofloxacin [Levaquin] 750 mg PO DAILY #7 tablet Metronidazole [Flagyl] 500 mg PO TID #21 tab Continue Aspirin (Enteric Coated) [Halfprin] 81 mg PO DAILY Atorvastatin [Lipitor 20 mg Tablet] 20 mg PO HS Amlodipine Bes/Olmesartan Med [Azeb Tablet (5mg/40 mg)] 0.5 tab PO QAM O2 Device: Room Air Diet at Discharge: Heart Healthy, Low Residue Activity: As Tolerated Call Office For: Worsening Symptoms - DC Summary Notes Hospital Course Note:: Discharge summary on patient named TOBY ZHENG admitted to [facility] on 05/26/16 by Daniele Covington MD. Date of discharge is []. - Physical Exam Vital Signs: Last Vital Signs Temp 98.2 F 05/28/16 06:00 Pulse 70 05/28/16 06:00 Resp 20 05/28/16 06:00 BP 167/72 05/28/16 06:00 Pulse Ox 96 05/28/16 06:00 Oxygen Pulse Oxygen Saturation 96 O2 Device Room Air Oxygen Flow Rate Fraction of Inspired Oxygen ( FIO2) Constitutional: No apparent distress, Alert (Awake), Well nourished, Well appearing Oriented to: Time, Person, Place - HEENT Head: Normal ( normocephalic) Eye: Normal (PERRL, EOMI, Sclera white) Oropharynx: Normal (Pharynx:Moist without exudate,Gums-no swelling) Tympanic Membrane: Normal ENT EAC: Normal TMJ: Normal Nose: No Symptoms Reported (septum midline) - Respiratory/Cardiovascular Respiratory: Normal - CTA (BBS clear to auscultation without adventitious sounds ) Cardiovascular: Normal - GI Auscultation: Normal (NABS) Palpation: Normal (Soft,No rebound or guarding, non distended) Tenderness: Moderate, LLQ Verduzco's Sign: Negative - Musculoskeletal Back: Normal (Non-Tender) Extremities: Normal (Normal tone, Pulses 2+ No cyanosis or edema, FROM) - Integumentary Skin: Warm Lymphatics: Normal (no adenopathy) - Neurologic Memory Impaired: Normal Motor Function: Normal Cranial Nerve: Normal Cerebellar: Normal Mood Description: Normal Thought: Coherent Perception: Normal
[2016-05-28] MEDS: AMLODIPINE 2.5 MG TAB PO SCH (09:53)
[2016-05-28 09:54] VITALS: BP 159/77; PULSE 66
[2016-05-28] MEDS ORDERED: Levofloxacin 750 mg/150 ml D5W 750 MG/150 ML RTU IV SCH (18:00)
== END 2016-05-28 12:33 | disposition home or self-care (01) | DRG 392 ==
LOC: ED 16:07 → MPS3 18:26
PROVIDERS: ADMIT Internal Medicine; ATTEND Hospitalist
DX: K57.92 Diverticulitis of intestine, part unspecified, without perforation or abscess without bleeding (principal); E86.0 Dehydration; K76.0 Fatty (change of) liver, not elsewhere classified; D41.01 Neoplasm of uncertain behavior of right kidney; I73.9 Peripheral vascular disease, unspecified; I10 Essential (primary) hypertension; E78.00 Pure hypercholesterolemia, unspecified; Z85.820 Personal history of malignant melanoma of skin; Z86.73 Personal history of transient ischemic attack (TIA), and cerebral infarction without residual deficits; Z79.899 Other long term (current) drug therapy; Z79.82 Long term (current) use of aspirin; M48.06 Spinal stenosis, lumbar region
CPT/HCPCS: 36415; 74177; 76770; 80053; 81001; 82272; 83605; 83690; 85025; 85027; 87040; 96361; 96365; 96372; 99284; A9698; J1650; J1956; J2270; J2405; J3490